=== PATIENT | female | born 1980 | race African-American/Black ===

== ENCOUNTER 2017-01-29 17:44 | Emergency (ER) | payer MEDICAID ==
[~2017-01-29] VITALS: Ht 167.6 cm; Wt 60.8 kg
[2017-01-29 18:43] LABS: Basophils # (auto) 0 uL; Basophils % (auto) 0.4 % (0.0-2.0); Eosinophils # (auto) 0 uL; Eosinophils % (auto) 0.5 % (0.0-7.0); Hematocrit 37.8 % (36.0-46.0); Hemoglobin 12.7 g/dL (12.2-16.2); Lymphocytes # (auto) 1.9 uL; Lymphocytes % (auto) 28.1 % (10.0-50.0); Mean Corpuscular Hemoglobin 29.4 pg (28.0-32.0); Mean Corpuscular Hgb Conc. 33.5 g/dL (32.0-36.0); Mean Corpuscular Volume 87.8 fL (80.0-100.0); Mean Platelet Volume 10.4 fL (7.4-10.4); Monocytes # (auto) 0.8 uL; Monocytes % (auto) 12.3 % (0.0-12.0); Neutrophils % (auto) 58.7 % (37.0-80.0); Platelet Count (auto) 141 10^3/uL (140-450); Red Cell Distribution Width 12.4 % (11.6-16.0); SUSPECT VIEW TRANSMISSION; White Blood Cell 6.8 10^3/uL (4.4-10.8)
[2017-01-29 18:52] LABS: Albumin 3.7 g/dL (3.4-5.0); BUN/Creatinine Ratio 15.9; Bilirubin, Total 0.3 mg/dL (0.2-1.0); Calcium 9.2 mg/dL (8.5-10.1); Potassium 3.8 mmol/L (3.5-5.1); Total Protein 8.5 g/dL (6.4-8.2)
[2017-01-29 18:56] LABS: Urine Bilirubin Negative (Negative); Urine Color Colorless (Yellow); Urine Glucose Normal (Normal); Urine Ketone Negative (Negative); Urine Nitrite Negative (Negative); Urine RBC 12 /hpf (0 - 4); Urine Squamous Epithelial Cell FEW /hpf (<5); Urine Urobilinogen Normal (Negative); Urine pH 6.5 (5.0-8.0)
[2017-01-29 18:57] LABS: Urine Blood 2+ /uL (Negative)
[2017-01-29 19:29] VITALS: BP 113/66
[2017-01-29 22:04] LABS: Platelet Clumps MODERATE; Platelet Estimate Adequate
== END 2017-01-29 19:31 | disposition home or self-care (01) ==
LOC: ER 17:45
DX: O20.0 Threatened abortion (principal); O23.41 Unspecified infection of urinary tract in pregnancy, first trimester; O99.334 Smoking (tobacco) complicating childbirth; Z3A.01 Less than 8 weeks gestation of pregnancy; Z88.0 Allergy status to penicillin
CPT/HCPCS: 36415; 76801; 80053; 81001; 84702; 85025

== ENCOUNTER 2017-08-01 09:32 | Emergency (ER) | payer MEDICAID ==
[~2017-08-01] VITALS: Ht 167.6 cm; Wt 63.5 kg
[2017-08-01 10:11] VITALS: BP 135/80
[2017-08-01] MEDS ORDERED: LIDOCAINE 1% HCL (LOCAL ANESTH.) INJ 20ML MDV IN ONE (10:45)
== END 2017-08-01 11:08 | disposition home or self-care (01) ==
LOC: ER 09:32
DX: N75.1 Abscess of Bartholin's gland (principal); F17.210 Nicotine dependence, cigarettes, uncomplicated; Z88.0 Allergy status to penicillin
CPT/HCPCS: 56420; 99284; J2001

== ENCOUNTER 2018-06-08 16:40 | Inpatient (IN) | payer MEDICAID ==
[~2018-06-08] VITALS: Ht 167.6 cm; Wt 66.7 kg
[2018-06-08] MEDS ORDERED: hydrALAZINE HCL 20 MG/ML VL IV ONE (17:15)
[2018-06-08 17:26] LABS: Urine Bacteria NONE SEEN /hpf (None Seen); Urine Blood 1+ /uL (Negative); Urine Specific Gravity 1.002 (1.001-1.035); Urine WBC 5 /hpf (0 - 5)
[2018-06-08 17:28] LABS: Alcohol, Urine < 3.0 mg/dL (0-5); Amphetamine Screen, Urine NEGATIVE (NEGATIVE); Barbiturate Scree,Urine NEGATIVE (NEGATIVE); Benzodiazephine Screen, Urine NEGATIVE (NEGATIVE); Cannabinoid Screen, Urine POSITIVE (NEGATIVE); Cocaine Screen, Urine NEGATIVE (NEGATIVE); Opiate Scree,Urine NEGATIVE (NEGATIVE); Phencyclidine Screen, Urine NEGATIVE (NEGATIVE)
[2018-06-08 17:48] LABS: Basophils # (auto) 0 uL; Basophils % (auto) 0.3 % (0.0-2.0); Eosinophils # (auto) 0 uL; Eosinophils % (auto) 0.6 % (0.0-7.0); Hematocrit 39.7 % (36.0-46.0); Hemoglobin 13.3 g/dL (12.2-16.2); Lymphocytes # (auto) 1.6 uL; Lymphocytes % (auto) 33.5 % (10.0-50.0); Mean Corpuscular Hemoglobin 30.6 pg (28.0-32.0); Mean Corpuscular Hgb Conc. 33.6 g/dL (32.0-36.0); Monocytes # (auto) 0.6 uL; Neutrophils # (auto) 2.6 uL; Neutrophils % (auto) 53.6 % (37.0-80.0); Nucleated Red Blood Cells % 0.2 %; Platelet Count (auto) 116 10^3/uL (140-450); Red Blood Cells 4.36 10^6/uL (4.0-5.20); Red Cell Distribution Width 13.8 % (11.8-14.3); White Blood Cell 4.9 10^3/uL (4.4-10.8)
[2018-06-08 17:51] LABS: Alanine Aminotransferase 23 U/L (13-56); Albumin 3.8 g/dL (3.4-5.0); Anion Gap 10 (5-15); Aspartate Aminotransferase 22 U/L (15-37); BUN/Creatinine Ratio 10.6; Blood Urea Nitrogen 11 mg/dL (7-18); Calcium 8.3 mg/dL (8.5-10.1); Carbon Dioxide 22 mmol/L (21-32); Chloride 109 mmol/L (98-107); GFR African American 75 mL/min; GFR Non-African American 62 mL/min; Glucose 96 mg/dL (74-106); Magnesium 2.3 mg/dL (1.6-2.6); Potassium 3.3 mmol/L (3.5-5.1); Sodium 141 mmol/L (136-145)
[2018-06-08 17:56] LABS: Alkaline Phosphatase 92 U/L (45-117); Bilirubin, Total 0.4 mg/dL (0.2-1.0); Total Protein 9.1 g/dL (6.4-8.2)
[2018-06-08] MEDS ORDERED: ASPirin 81 mg TAB PO ONE (18:15)
[2018-06-08] MEDS ORDERED: cloNIDine HCL 0.1 MG TAB PO PRN (21:00)
[2018-06-08] MEDS ORDERED: HYDROcodone-ACET 5/325MG TAB PO PRN (21:00)
[2018-06-08] MEDS ORDERED: ONDANSETRON HCL 4 MG/2 ML VIAL IV PRN (21:00)
[2018-06-08] MEDS ORDERED: TEMAZEPAM 15 MG CAP PO PRN (21:00)
[2018-06-08] MEDS ORDERED: POTASSIUM CHL 20 Meq TABLET PO ONE (21:00)
[2018-06-08] MEDS ORDERED: NITROGLYCERIN 0.4 MG SL TAB SL PRN (21:00)
[2018-06-08] MEDS ORDERED: MORPHINE SULFATE 4 MG/ML SYR/VIAL IV PRN (21:00)
[2018-06-08] MEDS: FAMOTIDINE 20 MG TAB PO SCH (21:32)
[2018-06-08 22:05] VITALS: BP 140/96
[2018-06-09 05:00] VITALS: BP 145/88
[2018-06-09 07:10] LABS: Basophils # (auto) 0 uL; Basophils % (auto) 0.3 % (0.0-2.0); Eosinophils # (auto) 0 uL; Eosinophils % (auto) 0.7 % (0.0-7.0); Hematocrit 41.8 % (36.0-46.0); Hemoglobin 13.9 g/dL (12.2-16.2); Lymphocytes % (auto) 21.5 % (10.0-50.0); Mean Corpuscular Hemoglobin 30.3 pg (28.0-32.0); Mean Corpuscular Hgb Conc. 33.2 g/dL (32.0-36.0); Mean Corpuscular Volume 91.1 fL (80.0-100.0); Monocytes # (auto) 0.6 uL; Monocytes % (auto) 14.2 % (0.0-12.0); Neutrophils # (auto) 2.8 uL; Neutrophils % (auto) 63.3 % (37.0-80.0); Nucleated Red Blood Cells % 0.1 %; Platelet Count (auto) 90 10^3/uL (140-450); Red Blood Cells 4.59 10^6/uL (4.0-5.20); Red Cell Distribution Width 13.6 % (11.8-14.3); White Blood Cell 4.5 10^3/uL (4.4-10.8)
[2018-06-09 07:33] LABS: Potassium 4.3 mmol/L (3.5-5.1)
[2018-06-09 07:38] LABS: Albumin 3.5 g/dL (3.4-5.0); BUN/Creatinine Ratio 10.6; Bilirubin, Total 0.8 mg/dL (0.2-1.0); Total Protein 8.9 g/dL (6.4-8.2)
[2018-06-09 08:27] VITALS: BP 149/49
[2018-06-09] MEDS ORDERED: HYDROcodone-ACET 10/325MG TAB PO ONE (09:00)
[2018-06-09] MEDS: FAMOTIDINE 20 MG TAB PO SCH ×2 (09:21→21:24)
[2018-06-09 12:20] VITALS: BP 149/87
[2018-06-09] MEDS: HYDROcodone-ACET 10/325MG TAB PO PRN ×2 (13:00→17:25)
[2018-06-09] MEDS ORDERED: TRIAMTERENE/HCTZ 37.5/25 MG CAP/TAB PO ONE (13:45)
[2018-06-09 16:49] VITALS: BP 159/94
[2018-06-09] MEDS: ACETAMINOPHEN 325 MG TAB PO PRN (21:24)
[2018-06-09 22:00] VITALS: BP 151/98
[2018-06-10 05:11] VITALS: BP 145/87
[2018-06-10 05:29] VITALS: BP 156/98
[2018-06-10 06:30] LABS: Basophils # (auto) 0 uL; Basophils % (auto) 0.4 % (0.0-2.0); Eosinophils # (auto) 0 uL; Hematocrit 41.9 % (36.0-46.0); Lymphocytes % (auto) 24.5 % (10.0-50.0); Mean Corpuscular Hemoglobin 30.2 pg (28.0-32.0); Mean Corpuscular Hgb Conc. 33.4 g/dL (32.0-36.0); Mean Corpuscular Volume 90.6 fL (80.0-100.0); Monocytes # (auto) 0.7 uL; Monocytes % (auto) 16.9 % (0.0-12.0); Neutrophils # (auto) 2.2 uL; Neutrophils % (auto) 57.2 % (37.0-80.0); Nucleated Red Blood Cells % 0.1 %; Platelet Count (auto) 110 10^3/uL (140-450); Red Blood Cells 4.62 10^6/uL (4.0-5.20); Red Cell Distribution Width 13.6 % (11.8-14.3); White Blood Cell 3.9 10^3/uL (4.4-10.8)
[2018-06-10 06:50] LABS: Anion Gap 6 (5-15); Blood Urea Nitrogen 10 mg/dL (7-18); Calcium 9.1 mg/dL (8.5-10.1); Carbon Dioxide 24 mmol/L (21-32); Chloride 106 mmol/L (98-107); Glucose 82 mg/dL (74-106); Potassium 4.2 mmol/L (3.5-5.1); Sodium 136 mmol/L (136-145)
[2018-06-10 06:54] LABS: BUN/Creatinine Ratio 10.9; GFR African American 87 mL/min; GFR Non-African American 72 mL/min
[2018-06-10 09:00] VITALS: BP 154/97
[2018-06-10] MEDS: FAMOTIDINE 20 MG TAB PO SCH ×2 (10:01→21:22)
[2018-06-10] MEDS: amLODIPine BESYLATE 5 MG TAB PO SCH (10:01)
[2018-06-10] MEDS: TRIAMTERENE/HCTZ 37.5/25 MG CAP/TAB PO SCH (10:02)
[2018-06-10 12:45] VITALS: BP 144/94
[2018-06-10 17:00] VITALS: BP 149/93
[2018-06-10] MEDS: ACETAMINOPHEN 325 MG TAB PO PRN (17:30)
[2018-06-10 22:00] VITALS: BP 143/97
[2018-06-11 05:00] VITALS: BP 150/94
[2018-06-11 06:56] LABS: Potassium 4.2 mmol/L (3.5-5.1)
[2018-06-11 07:01] LABS: BUN/Creatinine Ratio 10.8
[2018-06-11 09:00] VITALS: BP 133/86
[2018-06-11] MEDS: ACETAMINOPHEN 325 MG TAB PO PRN (10:00)
[2018-06-11] MEDS ORDERED: LISINOPRIL 20 MG TAB PO SCH (10:00)
[2018-06-11] MEDS: amLODIPine BESYLATE 5 MG TAB PO SCH (10:05)
[2018-06-11] MEDS: TRIAMTERENE/HCTZ 37.5/25 MG CAP/TAB PO SCH (10:05)
[2018-06-11] MEDS: FAMOTIDINE 20 MG TAB PO SCH (10:05)
[2018-06-11] MEDS ORDERED: DYA375C PO (11:34)
[2018-06-11] MEDS ORDERED: AML5T PO (11:34)
[2018-06-11 13:00] VITALS: BP 139/92
[2018-06-11 16:07] VITALS: BP 138/97
[2018-06-11 17:00] VITALS: BP 138/97
== END 2018-06-11 17:30 | disposition home or self-care (01) | DRG 199 ==
LOC: ER 16:47 → TELE 16:48 → TELE-EAST 22:04
PROVIDERS: ADMIT Nurse Practitioner; ATTEND Internal Medicine
DX: I10 Essential (primary) hypertension (principal); E87.6 Hypokalemia; F17.210 Nicotine dependence, cigarettes, uncomplicated; F12.90 Cannabis use, unspecified, uncomplicated; Z82.49 Family history of ischemic heart disease and other diseases of the circulatory system; Z83.3 Family history of diabetes mellitus; Z88.0 Allergy status to penicillin; Z71.6 Tobacco abuse counseling
CPT/HCPCS: 36415; 71045; 80048; 80053; 80061; 80307; 81001; 81025; 83735; 84484; 85025; 93005; 93306; 94761; 96374